=== PATIENT | female | born 1995 | race Two or more races ===

== ENCOUNTER 2024-04-02 19:36 | Emergency (ER) | payer SELFPAY ==
[2024-04-02 19:38] VITALS: BMI 34.3
[2024-04-02 20:02] VITALS: BP 134/82; PULSE 80; RESP 18; TEMP 36.8; O2SAT 97
--- NOTE | 2024-04-02 20:17 | EDNOTE_ITS ---
ED Female Urogenital RME/HPI General Chief complaint: Nausea/Vomiting/Diarrhea Stated complaint: N/V/D XMONTHS Time Seen by Provider: 04/02/24 20:16 Arrival date/time: 04/02/24 19:36 28F with no significant PMH presents to ED with several months of intermittent vaginal bleeding, N/V, diarrhea, dizziness, and weakness after she got her Nexplanon. Patient has followed up with provider who states these are all side- effects. Patient is here today because she had some vaginal blood clots and got scared. Patient recently moved here and has yet to establish PCP. Limitations: no limitations Related Data Allergies Allergy/AdvReac Type Severity Reaction Status Date / Time ibuprofen Allergy Severe Swelling Verified 04/02/24 19:43 of Lip/Tongue/Throat Review of Systems Review of Systems Systems Reviewed: All systems reviewed, normal except as documented Constitutional Constitutional: Reports system reviewed and no additional complaints, except as documented, Denies fever(s) and Denies headache(s) ENT Ears, Nose, Mouth, and Throat: Denies disequilibrium and Denies headache(s) Cardiovascular Cardiovascular: Reports system reviewed and no additional complaints, except as documented, Denies chest pain and Denies dyspnea Respiratory Respiratory: Reports system reviewed and no additional complaints, except as documented, Denies cough and Denies dyspnea Gastrointestinal Gastrointestinal: Reports system reviewed and no additional complaints, except as documented, Reports as per HPI, Denies abdominal pain, Reports diarrhea, Reports nausea and Reports vomiting Genitourinary Genitourinary: Reports as per HPI and Reports abnormal vaginal bleeding Neurologic Neurologic: Reports system reviewed and no additional complaints, except as documented, Denies confusion, Denies disequilibrium and Denies headache(s) Psychiatric Psychiatric: Denies confusion Past Medical History Social History SMOKING STATUS: Current some day smoker ED Exam General Limitations: Present no limitations General appearance: Present alert and in no apparent distress Head Head exam: Present atraumatic Eye Eye exam: Present normal appearance, PERRL and EOMI ENT ENT exam: Present normal exam, normal oropharynx and mucous membranes moist Neck Neck exam: Present normal inspection, full ROM and trachea midline Chest Chest inspection: Present normal inspection and symmetric chest wall rise Respiratory Respiratory exam: Present normal lung sounds bilaterally Cardiovascular Cardiovascular exam: Present regular rate, normal rhythm and normal heart sounds Abdominal Exam Abdominal exam: Present soft and normal bowel sounds Extremities Exam Extremities exam: Present normal inspection and full ROM Back Exam Back exam: Present normal inspection and full ROM Neurological Exam Neurological exam: Present alert, oriented X3 and CN II-XII intact Psychiatric Psychiatric exam: Present normal affect and normal mood Skin Skin exam: Present warm, dry, intact and normal color Course Quality Measures none Orders Category Date Time Status Blood glucose [Bedside Blood Glucose] NOW Care 04/02/24 20:16 Completed Vital Signs Vital signs: Vital Signs Temperature 98.2 F 04/02/24 20:02 Pulse Rate 80 04/02/24 20:02 Respiratory Rate 18 04/02/24 20:02 Blood Pressure 134/82 H 04/02/24 20:02 Pulse Oximetry (%) 97 04/02/24 20:02 Oxygen Delivery Method Room Air 04/02/24 20:02 O2 at 97% on RA and WNLs Urogenital - Female MDM Narrative MDM Narrative:: 28F with no significant PMH presents to ED with several months of intermittent vaginal bleeding, N/V, diarrhea, dizziness, and weakness after she got her Nexplanon. Patient has followed up with provider who states these are all side- effects. Patient is here today because she had some vaginal blood clots and got scared. Patient recently moved here and has yet to establish PCP. Physical exam reveals no ab tenderness. Patient is afebrile, calm, and alert. Counseled to establish primary care and can get Nexplanon removed as she moved here because her recently got incarcerated back in [place] and she doesn't need contraception. BS 112. Patient data External records reviewed:: None Clinical information provided by:: patient Social determinants that could affect healthcare access:: none Patient has the following chronic illnesses:: none How is presenting disease/condition affected by chronic disease/condition?: no chronic disease Evaluation data The following diagnostics were reviewed and interpreted by me:: lab results Lab and/or radiology exams considered but not ordered:: ordered Interpretation Summary: above Medications / Prescriptions Medications or Prescriptions considered but not ordered:: not ordered Medication administrations:: n/a Consultations Consultation(s) initiated? (list below): No Diagnosis Urogenital Female Differential Diagnosis: urinary tract infection, bacterial vaginosis, trichomoniasis, cervicitis, ovarian cyst, vaginitis, ruptured ovarian cyst, cyst of Bartholin's gland, cystitis, dysmenorrhea and other (breakthrough bleeding on Nexplanon) Most likely diagnosis given after review of the tests above:: breakthrough bleeding on Nexplanon Admission Indicated Admission indicated?: not indicated Admission Request Was there a request for admission?: No Disposition Plan Disposition Plan: Discharge Discharge Attestation Discharge Attestation: The patient and all family members were given an opportunity to ask questions and understood the discharge instructions. Discharge instructions specifically effects, indications for sooner follow up or return to the emergency department, and the expected course of current diagnosis. Patient condition: Stable Discharge Plan Plan Patient Disposition: HOME (Self Care) Disposition Comment: Stable Problem List Clinical Impression: Breakthrough bleeding on Nexplanon Patient/Caregiver Discharge Instructions Education Materials: ED Dysfunctional Uterine Bleeding Additional Instructions: Please follow-up with PCP within 24-48 hours and return immediately if symptoms worsen. Recommend establish care with PCP/OBGYN now that you've moved here. Print Language: Danish Stand Alone Forms: Patient Portal Info Letter CLEMENTE/KATHERINE Supervising Physician CLEMENTE/KATHERINE Supervising Physician: Dr. Reyes
== END 2024-04-02 20:34 | disposition home or self-care (01) ==
LOC: SERX 20:36
PROVIDERS: Emergency Provider Emergency Medicine
DX: N93.9 Abnormal uterine and vaginal bleeding, unspecified (principal); Z97.5 Presence of (intrauterine) contraceptive device
CPT/HCPCS: 99282

== ENCOUNTER 2024-04-20 15:48 | Emergency (ER) | payer SELFPAY ==
[2024-04-20 16:15] VITALS: BP 132/80; PULSE 70; RESP 18; TEMP 36.7; O2SAT 96; BMI 38.7
--- NOTE | 2024-04-20 16:38 | EDNOTE_ITS ---
ED Eye Problem RME/HPI General Chief complaint: Eye Problems Stated complaint: EYES RED/SWOLLEN x 1 WEEK Time Seen by Provider: 04/20/24 16:06 Source: patient and family Arrival date/time: 04/20/24 15:48 This a 28-year-old female presents to the emergency department complaints of bilateral eye irritation for 1 week. However noticed that she has been itching and scratching her eye on the left side. Woke up today with eye erythema and drainage. Denies any other symptoms. Mode of arrival: ambulatory Limitations: no limitations Related Data Previous Rx's ?Medication ?Instructions ?Recorded loratadine 10 mg capsule 10 mg PO QDAY #30 caps 04/20/24 ofloxacin 0.3 % eye drops 1 drp ophthalmic (eye) QID 5 days 04/20/24 #5 mL Allergies Allergy/AdvReac Type Severity Reaction Status Date / Time ibuprofen Allergy Severe Swelling Verified 04/20/24 15:51 of Lip/Tongue/Throat Review of Systems Review of Systems Systems Reviewed: All systems reviewed, normal except as documented Narrative Review of Systems: Gen: No fever, no chills, no weight loss EYES: + discharge, no visual changes, no pain HEENT: No ear pain, no congestion, no sore throat PULM: No shortness of breath, no cough, no congestion CV: No chest pain, no dyspnea on exertion, no palpitations GI: No nausea, no vomiting, no diarrhea, no pain, no constipation : No frequency, no urgency,? no dysuria Musc/skel: No joint pain, no back pain Skin: No rash? Psyc: No hallucinations, no depression Heme/Lymph: No easy bleeding or bruising tendencies Neuro: No weakness, no headache ED Exam General Limitations: Present no limitations General appearance: Present alert and in no apparent distress Head Head exam: Present atraumatic Eye Eye exam: Present PERRL, EOMI and conjunctival injection (worsening on left eye + discharge.) ENT ENT exam: Present normal exam, normal oropharynx and mucous membranes moist Neck Neck exam: Present normal inspection, full ROM and trachea midline Chest Chest inspection: Present normal inspection and symmetric chest wall rise Respiratory Respiratory exam: Present normal lung sounds bilaterally Cardiovascular Cardiovascular exam: Present regular rate, normal rhythm and normal heart sounds Abdominal Exam Abdominal exam: Present soft and normal bowel sounds Extremities Exam Extremities exam: Present normal inspection and full ROM Back Exam Back exam: Present normal inspection and full ROM Neurological Exam Neurological exam: Present alert, oriented X3 and CN II-XII intact Psychiatric Psychiatric exam: Present normal affect and normal mood Skin Skin exam: Present warm, dry, intact and normal color Course Quality Measures none Vital Signs Vital signs: Vital Signs Temperature 98.1 F 04/20/24 16:15 Pulse Rate 70 04/20/24 16:15 Respiratory Rate 18 04/20/24 16:15 Blood Pressure 132/80 H 04/20/24 16:15 Pulse Oximetry (%) 96 04/20/24 16:15 Oxygen Delivery Method Room Air 04/20/24 16:15 Eye MDM Narrative MDM Narrative:: this is a 28 y old female with complaints of bilateral eye itchiness and drainage. Most likely allergic conjunctivitis however possible secondary infection starting on her left eye. Will treat with antibiotics. Advised to take allergy medications follow-up with the PCP return to the emergency department this any worsening symptoms any condition. Patient data External records reviewed:: [facility] previous records Clinical information provided by:: patient Social determinants that could affect healthcare access:: none Patient has the following chronic illnesses:: no How is presenting disease/condition affected by chronic disease/condition?: no chronic disease Evaluation data The following diagnostics were reviewed and interpreted by me:: other (specify) Lab and/or radiology exams considered but not ordered:: no Interpretation Summary: n/a Medications / Prescriptions Medications or Prescriptions considered but not ordered:: Rx sent Medication administrations:: no Consultations Consultation(s) initiated? (list below): No Diagnosis Eye Problem Differential Diagnosis: corneal abrasion, conjunctivitis and subconjunctival hemorrhage Most likely diagnosis given after review of the tests above:: bacterial conjunctivitis Admission Indicated Admission indicated?: not indicated Admission Request Was there a request for admission?: No Disposition Plan Disposition Plan: Discharge Discharge Attestation Discharge Attestation: The patient and all family members were given an opportunity to ask questions and understood the discharge instructions. Discharge instructions specifically effects, indications for sooner follow up or return to the emergency department, and the expected course of current diagnosis. Patient condition: Stable Discharge Plan Plan Patient Disposition: HOME (Self Care) Patient condition on transfer: Stable Prescriptions/Referrals Prescriptions/Med Rec: New ofloxacin 0.3 % drops 1 drp ophthalmic (eye) QID 5 Days Qty: 5 0RF loratadine 10 mg capsule 10 mg PO QDAY Qty: 30 0RF Problem List Clinical Impression: Bacterial conjunctivitis Patient/Caregiver Discharge Instructions Discharge Activity: activity as tolerated Education Materials: ED Conjunctivitis, Nonspecific Additional Instructions: Start allergy medication as directed. Use your eyedrops as directed. Follow-up with your primary doctor clinic in 2 days for follow-up care. Return to the emergency department there is any worsening symptoms or change in condition. Print Language: Hebrew Stand Alone Forms: Alisson Award Info., Patient Portal Info Letter PA/[employer] Supervising Physician PA/KATHERINE Supervising Physician: Dr Bermeo
== END 2024-04-20 17:10 | disposition home or self-care (01) ==
PROVIDERS: Emergency Provider Emergency Medicine
DX: H10.89 Other conjunctivitis (principal)
CPT/HCPCS: 99281

== ENCOUNTER 2024-06-26 19:35 | Emergency (ER) | payer MEDICAID, SELFPAY ==
[2024-06-26 19:36] VITALS: BMI 35.5
[2024-06-26 20:05] VITALS: BP 127/87; PULSE 96; RESP 18; TEMP 37.1; O2SAT 97
--- NOTE | 2024-06-26 20:27 | EDNOTE_ITS ---
ED Female Urogenital RME/HPI General Chief complaint: Urogenital-Female Stated complaint: FELT SOMETHING COMING OUT WHEN GOING TO BATHROOM Time Seen by Provider: 06/26/24 20:14 Arrival date/time: 06/26/24 19:35 RME / HPI RME / HPI Narrative: 28-year-old female patient came in for evaluation regarding something coming out on her vagina. Patient was doing #2 and tried to push, and felt something coming out in her vagina, she tried to push it back. Patient denies any fever denies any dysuria denies any vomiting denies any abdominal pain. Patient is 5 having 4 vaginal deliveries. Currently she is not . Related Data Previous Rx's ?Medication ?Instructions ?Recorded loratadine 10 mg capsule 10 mg PO QDAY #30 caps 04/20 Allergies Allergy/AdvReac Type Severity Reaction Status Date / Time ibuprofen Allergy Severe Swelling Verified 04/20/24 15:51 of Lip/Tongue/Throat Review of Systems Review of Systems Narrative Review of Systems: Review of system reviewed and within normal limits except mentioned in HPI ED Exam Narrative Physical exam: VITAL SIGNS: Reviewed. GENERAL APPEARANCE: Alert and interactive, follows commands, no acute distress, HEAD AND FACE: Non-traumatic. ENT: PERRL, pink conjunctivitis, eyelid no trauma, Mucous membrane moist. NECK: Supple, nontender, no nuchal rigidity. RECTAL: Deferred. GENITAL: Genital exam was done by me with female nurse Shasha around all the time, grade 1 uterine prolapse was appreciated, I tried to push it back it went up all the way. No tenderness no bleeding. NEUROLOGICAL: Gross motor function intact sensory function intact, Appropriate for age. MUSCULOSKELETAL: low back nontender, full range of motion. EXTREMITIES: Nontender, full range of motion. SKIN: Color pink, dry, no rash, no lacerations, no abrasions, no contusions. LYMPHATICS: Deferred. Course Quality Measures none Vital Signs Vital signs: Vital Signs Temperature 98.7 F 06/26/24 20:05 Pulse Rate 96 06/26/24 20:05 Respiratory Rate 18 06/26/24 20:05 Blood Pressure 127/87 H 06/26/24 20:05 Pulse Oximetry (%) 97 06/26/24 20:05 Oxygen Delivery Method Room Air 06/26/24 20:05 Urogenital - Female MDM Narrative MDM Narrative:: 28-year-old female patient came in for evaluation regarding something coming out on her vagina. Patient was doing #2 and tried to push, and felt something coming out in her vagina, she tried to push it back. Patient denies any fever denies any dysuria denies any vomiting denies any abdominal pain. Patient is 5 having 4 vaginal deliveries. Currently she is not . Patient is having uterine prolapse, imaging or workup not needed at this time. Patient was advised to follow-up with [facility] in the morning. At this time no further treatment is needed. Patient's uterine prolapse is back to right position. Patient appears nontoxic and hemodynamically stable. Patient discharged home and instructed to follow-up with primary care provider in 24 to 48 hours. Instructed to return to the emergency department immediately if worsening of symptoms Patient data External records reviewed:: None Clinical information provided by:: patient Social determinants that could affect healthcare access:: none Patient has the following chronic illnesses:: None How is presenting disease/condition affected by chronic disease/condition?: no chronic disease Evaluation data The following diagnostics were reviewed and interpreted by me:: other (specify) Lab and/or radiology exams considered but not ordered:: None Interpretation Summary: None Medications / Prescriptions Medications or Prescriptions considered but not ordered:: None Medication administrations:: None Consultations Consultation(s) initiated? (list below): No Diagnosis Urogenital Female Differential Diagnosis: other (Uterine prolapse, rectocele, pelvic pain) Most likely diagnosis given after review of the tests above:: Uterine prolapse Admission Indicated Admission indicated?: not indicated Explain why admission is indicated or not indicated:: Stable Admission Request Was there a request for admission?: No Disposition Plan Disposition Plan: Discharge Discharge Attestation Discharge Attestation: The patient was given an opportunity to ask questions and understood the discharge instructions. Discharge instructions specifically effects, indications for sooner follow up or return to the emergency department, and the expected course of current diagnosis. Patient condition: Stable Discharge Plan Plan Patient Disposition: HOME (Self Care) Disposition Comment: stable Prescriptions/Referrals Prescriptions/Med Rec: No Action loratadine 10 mg capsule 10 mg PO QDAY Qty: 30 0RF Problem List Clinical Impression: Uterine prolapse Patient/Caregiver Discharge Instructions Education Materials: Pelvic Organ Prolapse Additional Instructions: Thank you for the opportunity for serving you today. You are stable for discharged . You are advised to: Follow-up with your PCP in 1 to 2 days and asked your PCP to refer you to a [facility] Return to ED for worsening of symptoms Please avoid pushing or doing Valsalva maneuver. Print Language: Georgian Stand Alone Forms: Alisson Award Info., Patient Portal Info Letter PA/WELFARE SERVICE AIDE Supervising Physician PA/WELFARE SERVICE AIDE Supervising Physician: MD Amy
== END 2024-06-26 20:50 | disposition home or self-care (01) ==
LOC: SERX 20:32
PROVIDERS: Emergency Provider Emergency Medicine
DX: N81.4 Uterovaginal prolapse, unspecified (principal)
CPT/HCPCS: 99283

== ENCOUNTER 2024-07-25 18:25 | Emergency (ER) | payer MEDICAID, SELFPAY ==
[2024-07-25 18:26] VITALS: BMI 40.3
[2024-07-25 18:33] VITALS: BP 148/85; PULSE 94; RESP 18; TEMP 36.8; O2SAT 95
--- NOTE | 2024-07-25 18:41 | EDNOTE_ITS ---
ED Extremity Problem RME/HPI General Chief complaint: Extremity Injury, Lower Stated complaint: THIGHS HURT Time Seen by Provider: 07/25/24 18:32 Arrival date/time: 07/25/24 18:25 28F with no significant PMH presents to ED with 1 day of bilateral thigh soreness, as if she worked out, but she didn't. Patient denies fall/trauma and SOB. Limitations: no limitations Related Data Previous Rx's ?Medication ?Instructions ?Recorded loratadine 10 mg capsule 10 mg PO QDAY #30 caps 04/20 Allergies Allergy/AdvReac Type Severity Reaction Status Date / Time ibuprofen Allergy Severe Swelling Verified 07/25/24 18:28 of Lip/Tongue/Throat Review of Systems Review of Systems Systems Reviewed: All systems reviewed, normal except as documented Constitutional Constitutional: Reports system reviewed and no additional complaints, except as documented, Denies fever(s) and Denies headache(s) ENT Ears, Nose, Mouth, and Throat: Denies disequilibrium and Denies headache(s) Cardiovascular Cardiovascular: Reports system reviewed and no additional complaints, except as documented, Denies chest pain and Denies dyspnea Respiratory Respiratory: Reports system reviewed and no additional complaints, except as documented, Denies cough and Denies dyspnea Gastrointestinal Gastrointestinal: Reports system reviewed and no additional complaints, except as documented, Denies abdominal pain, Denies nausea and Denies vomiting Musculoskeletal Musculoskeletal: Reports as per HPI and Reports muscle cramps (soreness) Neurologic Neurologic: Reports system reviewed and no additional complaints, except as documented, Denies confusion, Denies disequilibrium and Denies headache(s) Psychiatric Psychiatric: Denies confusion Past Medical History Social History SMOKING STATUS: Current every day smoker ED Exam General Limitations: Present no limitations General appearance: Present alert and in no apparent distress Head Head exam: Present atraumatic Eye Eye exam: Present normal appearance, PERRL and EOMI ENT ENT exam: Present normal exam, normal oropharynx and mucous membranes moist Neck Neck exam: Present normal inspection, full ROM and trachea midline Chest Chest inspection: Present normal inspection and symmetric chest wall rise Respiratory Respiratory exam: Present normal lung sounds bilaterally Cardiovascular Cardiovascular exam: Present regular rate, normal rhythm and normal heart sounds Abdominal Exam Abdominal exam: Present soft and normal bowel sounds Extremities Exam Extremities exam: Present normal inspection and full ROM Back Exam Back exam: Present normal inspection and full ROM Neurological Exam Neurological exam: Present alert, oriented X3 and CN II-XII intact Psychiatric Psychiatric exam: Present normal affect and normal mood Skin Skin exam: Present warm, dry, intact and normal color Course Quality Measures none Orders Category Date Time Status CYCLObenzaPRINE [Flexeril] Med 07/25/24 18:38 Discontinued 5 mg PO X1 ONE HYDROcodone*/APAP 5/325 [[place] 5/325] Med 07/25/24 20:00 Discontinued 1 tab PO X1 ONE Vital Signs Vital signs: Vital Signs Temperature 98.2 F 07/25/24 18:33 Pulse Rate 94 07/25/24 18:33 Respiratory Rate 18 07/25/24 18:33 Blood Pressure 148/85 H 07/25/24 18:33 Pulse Oximetry (%) 95 07/25/24 18:33 Oxygen Delivery Method Room Air 07/25/24 18:33 O2 at 95% on RA and WNLs Extremity Problem MDM Narrative MDM Narrative:: 28F with no significant PMH presents to ED with 1 day of bilateral thigh soreness, as if she worked out, but she didn't. Patient denies fall/trauma and SOB. Physical exam reveals no redness or swelling. Gait normal. Normal WOB. Patient is afebrile, calm, and alert. Meds improved symptoms. Patient data External records reviewed:: [facility] previous records Clinical information provided by:: patient Social determinants that could affect healthcare access:: none Patient has the following chronic illnesses:: none How is presenting disease/condition affected by chronic disease/condition?: no chronic disease Evaluation data The following diagnostics were reviewed and interpreted by me:: other (specify) (none) Lab and/or radiology exams considered but not ordered:: not ordered Interpretation Summary: n/a Medications / Prescriptions Medications or Prescriptions considered but not ordered:: ordered Medication administrations:: Medication Administration History Discontinued Medications Hydrocodone Bitart/Acetaminophen (Hydrocodone/Apap 5/325 Tablet) 1 tab PO X1 ONE Stop: 07/25/24 20:01 Last Admin: 07/25/24 20:08 Dose: 1 tab Documented By: GIOVANY Cyclobenzaprine HCl (Cyclobenzaprine 5 Mg Tablet) 5 mg PO X1 ONE Stop: 07/25/24 18:39 Last Admin: 07/25/24 18:49 Dose: 5 mg Documented By: DB above Consultations Consultation(s) initiated? (list below): No Diagnosis Extremity Problem Differential Diagnosis: herpes zoster, gout, cellulitis, superficial thrombophlebitis, deep venous thrombosis of upper extremity, lower extremity edema, deep vein thrombosis of lower extremity and other (muscle soreness) Most likely diagnosis given after review of the tests above:: muscle soreness Admission Indicated Admission indicated?: not indicated Admission Request Was there a request for admission?: No Disposition Plan Disposition Plan: Discharge Discharge Attestation Discharge Attestation: The patient and all family members were given an opportunity to ask questions and understood the discharge instructions. Discharge instructions specifically effects, indications for sooner follow up or return to the emergency department, and the expected course of current diagnosis. Patient condition: Stable Discharge Plan Plan Patient Disposition: HOME (Self Care) Disposition Comment: Stable Prescriptions/Referrals Prescriptions/Med Rec: No Action loratadine 10 mg capsule 10 mg PO QDAY Qty: 30 0RF Referrals: No Primary/Family,Physician [Primary Care Provider] - In 1 week Problem List Clinical Impression: Muscle soreness Patient/Caregiver Discharge Instructions Education Materials: ED Myalgias Additional Instructions: Please follow-up with PCP within 24-48 hours and return immediately if symptoms worsen. If problem persists, recommend outpatient PT and/or MRI follow-up. In the meantime, rest, use ice/heat, and/or compression. Print Language: Serbian Stand Alone Forms: Patient Portal Info Letter CLEMENTE/KATHERINE Supervising Physician CLEMENTE/KATHERINE Supervising Physician: Dr. Reyes
[2024-07-25] MEDS: CYCLObenzaPRINE 5 MG TABLET PO (18:49)
[2024-07-25] MEDS: HYDROcodone/APAP 5/325 TABLET 1 TAB PO (20:08)
== END 2024-07-25 20:52 | disposition home or self-care (01) ==
PROVIDERS: Emergency Provider Emergency Medicine
DX: M79.18 Myalgia, other site (principal)
CPT/HCPCS: 99283; A9270